=== PATIENT | male | born 1950 | race Caucasian/White ===

== ENCOUNTER 2018-03-10 12:16 | Emergency (ER) | payer OTHER ==
[2018-03-10 12:36] VITALS: BP 129/78
[2018-03-10] MEDS ORDERED: BUFFERED LIDOCAINE 10 ML SYRINGE SUBQ STA (13:15)
--- NOTE | 2018-03-10 13:41 | ED Physician Documentation ---
PD HPI UPPER EXT INJURY - Stated complaint Stated Complaint: L MID FINGER LAC - Chief complaint Chief Complaint: Laceration - History obtained from History obtained from: Patient - History of Present Illness Location: Left, Finger (middle) Type of injury: Laceration Where injury occurred: Home Timing - onset: Today Timing - duration: Minutes Timing - details: Abrupt onset, Still present Improved by: Rest Worsened by: Moving, Palpating Associated symptoms: No: Weakness, Numbness, Tingling, Swelling, Discolored Contributing factors: No: Anticoagulated Similar symptoms before: Diagnosis (laceration) Recently seen: Not recently seen - Additonal information Additional information: 67-year-old male with calcium pyrophosphate disease has lacerated his left middle finger on the ball of a trailer. He has retained function of all flexor tendons and distal sensation and has been able to control the bleeding with direct pressure. Review of Systems Constitutional: denies: Fever Respiratory: denies: Cough GI: denies: Vomiting Skin: reports: Laceration (s) Musculoskeletal: reports: Extremity pain PD PAST MEDICAL HISTORY - Past Medical History Past Medical History: Yes Cardiovascular: Hypertension Respiratory: None Endocrine/Autoimmune: HyPOthyroidism GI: GERD : Benign prostate hypertrophy HEENT: Other Psych: None Musculoskeletal: Other Derm: Other - Past Surgical History Past Surgical History: No General: EGD Ortho: Hip replacement, Knee replacement, Carpal Tunnel surgery HEENT: Tonsil/Adenoidectomy - Present Medications Home Medications: Ambulatory Orders Medication Instructions Recorded Confirmed Levothyroxine [Synthroid] 175 mcg PO DAILY 11/03/14 03/10/18 Losartan [Cozaar] 100 mg PO DAILY 11/03/14 03/10/18 amLODIPine [Norvasc] 5 mg PO DAILY 11/03/14 03/10/18 Acetaminophen [Tylenol] 650 mg PO Q6H PRN 09/26/15 03/10/18 Docusate Sodium 200 mg PO DAILY 09/26/15 03/10/18 Duloxetine HCl [Cymbalta] 60 mg PO DAILY 09/26/15 03/10/18 Loratadine 10 mg PO DAILY 09/26/15 03/10/18 Magnesium Oxide/Mag Aa Chelate 900 mg PO ONCE 09/26/15 03/10/18 [Magnesium 300 mg Capsule] Meloxicam [Mobic] 3.75 mg PO DAILY 09/26/15 03/10/18 Sildenafil Citrate [Viagra] 50 mg PO ONCE 09/26/15 03/10/18 HYDROcod/ACETAM 5/325 [Vicodin 2 tab PO ONCE 10/04/15 03/10/18 5/325] Cholecalciferol (Vitamin D3) 4,000 mg PO DAILY 03/10/18 03/10/18 [Vitamin D3] Hydroxychloroquine [Plaquenil] 400 tab PO DAILY 03/10/18 03/10/18 - Allergies Allergies/Adverse Reactions: Allergies Allergy/AdvReac Type Severity Reaction Status Date / Time prochlorperazine edisylate * AdvReac Severe dystonic Verified 03/10/18 12:36 [From Compazine] reaction prochlorperazine maleate * AdvReac Severe dystonic Verified 09/26/15 11:51 [From Compazine] reaction - Social History Does the pt smoke?: No Smoking Status: Never smoker Does the pt drink ETOH?: No Does the pt have substance abuse?: No - Immunizations Immunizations are current?: Yes - POLST Patient has POLST: No PD ED PE NORMAL - Vitals Vital signs reviewed: Yes (normal) - General General: Alert and oriented X 3, No acute distress, Well developed/nourished - HEENT HEENT: Atraumatic, PERRL - Respiratory Respiratory: No respiratory distress - Derm Derm: Normal color, Warm and dry, No rash - Extremities Extremities: Other (There are multiple joint deformities consistent with advanced arthritis. The middle finger over the PIP joint has a laceration that is stellate and involves multiple flaps with some maceration of tissue and no tissue loss. There is not involvement of deeper structures and flexion extension and sensation in blood are all intact.) - Neuro Neuro: No motor deficit, No sensory deficit Eye Opening: Spontaneous Motor: Obeys Commands Verbal: Oriented GCS Score: 15 - Psych Psych: Normal mood, Normal affect Results - Vitals Vitals: Vital Signs - 24 hr 03/10/18 12:34 Temperature 36.3 C L Heart Rate 68 Respiratory 18 Rate Blood Pressure 129/78 O2 Saturation 98 Oxygen O2 Source Room air Procedures - Laceration (location) left middle Length in cm: 2 Wound type: Stellate, Irregular, Clean Neurovascular status: Sensory intact, Motor intact, Vascular intact Anesthesia: Lidocaine 1%, With bicarb Wound Preparation: Hibiclens, Irrigated copiously NS, Wound explored, To the base Skin layer closure: Nylon, Interrupted, Size #-0 - enter number (4-0) Other: Patient tolerated well, No complications, Neurovascular intact, Dressing applied, Tetanus UTD PD MEDICAL DECISION MAKING - ED course Complexity details: reviewed old records, reviewed results, re-evaluated patient , considered differential, d/w patient, d/w family ED course: 67-year-old male with a left middle finger laceration is sutured he is up-to- date on his tetanus. Departure - Departure Disposition: 01 Home, Self Care Clinical Impression: Finger laceration Qualifiers: Encounter type: initial encounter Finger: middle finger Damage to nail status: without damage Foreign body presence: without foreign body Laterality: left Qualified Code(s): S61.213A - Laceration without foreign body of left middle finger without damage to nail, initial encounter Instructions: ED Laceration Hand Follow-Up: Vadim Rodriguez MD [Primary Care Provider] - Comments: Sutures will need to be removed in 7-10 days
== END 2018-03-10 13:55 | disposition home or self-care (01) ==
LOC: ED 12:16
DX: S61.213A Laceration without foreign body of left middle finger without damage to nail, initial encounter (principal); W45.8XXA Other foreign body or object entering through skin, initial encounter; Y92.009 Unspecified place in unspecified non-institutional (private) residence as the place of occurrence of the external cause; I10 Essential (primary) hypertension; E03.9 Hypothyroidism, unspecified; Z96.649 Presence of unspecified artificial hip joint; Z96.659 Presence of unspecified artificial knee joint
CPT/HCPCS: 12001; 99282; 99283

== ENCOUNTER 2018-06-03 16:18 | Emergency (ER) | payer MEDICARE, OTHER ==
[2018-06-03] MEDS ORDERED: BUFFERED LIDOCAINE 10 ML SYRINGE SUBQ STA (16:56)
--- NOTE | 2018-06-03 16:57 | ED Physician Documentation ---
PD HPI UPPER EXT INJURY - Stated complaint Stated Complaint: RT THUMB LAC - Chief complaint Chief Complaint: Laceration - History obtained from History obtained from: Patient - History of Present Illness Location: Right (Right-handed gentleman who is current on tetanus cut his right thumb on a table saw while working at home just prior to arrival.) Review of Systems Constitutional: reports: Reviewed and negative Cardiac: reports: Reviewed and negative Respiratory: reports: Reviewed and negative PD PAST MEDICAL HISTORY - Past Medical History Cardiovascular: Hypertension Respiratory: None Endocrine/Autoimmune: HyPOthyroidism GI: GERD : Benign prostate hypertrophy HEENT: Other Psych: None Musculoskeletal: Other Derm: Other - Past Surgical History Past Surgical History: No General: EGD Ortho: Hip replacement, Knee replacement, Carpal Tunnel surgery HEENT: Tonsil/Adenoidectomy - Present Medications Home Medications: Ambulatory Orders Medication Instructions Recorded Confirmed Levothyroxine [Synthroid] 175 mcg PO DAILY 11/03/14 03/10/18 Losartan [Cozaar] 100 mg PO DAILY 11/03/14 03/10/18 amLODIPine [Norvasc] 5 mg PO DAILY 11/03/14 03/10/18 Acetaminophen [Tylenol] 650 mg PO Q6H PRN 09/26/15 03/10/18 Docusate Sodium 200 mg PO DAILY 09/26/15 03/10/18 Duloxetine HCl [Cymbalta] 60 mg PO DAILY 09/26/15 03/10/18 Loratadine 10 mg PO DAILY 09/26/15 03/10/18 Magnesium Oxide/Mag Aa Chelate 900 mg PO ONCE 09/26/15 03/10/18 [Magnesium 300 mg Capsule] Meloxicam [Mobic] 3.75 mg PO DAILY 09/26/15 03/10/18 Sildenafil Citrate [Viagra] 50 mg PO ONCE 09/26/15 03/10/18 HYDROcod/ACETAM 5/325 [Vicodin 2 tab PO ONCE 10/04/15 03/10/18 5/325] Cholecalciferol (Vitamin D3) 4,000 mg PO DAILY 03/10/18 03/10/18 [Vitamin D3] Hydroxychloroquine [Plaquenil] 400 tab PO DAILY 03/10/18 03/10/18 - Allergies Allergies/Adverse Reactions: Allergies Allergy/AdvReac Type Severity Reaction Status Date / Time lisinopril Allergy Intermediate Respiratory Verified 06/03/18 16:28 prochlorperazine edisylate * AdvReac Severe dystonic Verified 03/10/18 12:36 [From Compazine] reaction prochlorperazine maleate * AdvReac Severe dystonic Verified 09/26/15 11:51 [From Compazine] reaction - Social History Does the pt smoke?: No Smoking Status: Never smoker Does the pt drink ETOH?: No Does the pt have substance abuse?: No - Immunizations Immunizations are current?: Yes - POLST Patient has POLST: No PD ED PE NORMAL - Vitals Vital signs reviewed: Yes - General General: Alert and oriented X 3, No acute distress - Extremities Extremities: Other (There is a 2 cm oblique laceration on the radial side of the pulp of the right thumb with normal distal neurovascular status.) - Neuro Neuro: Alert and oriented X 3, Normal speech - Psych Psych: Normal mood, Normal affect Results - Vitals Vitals: Vital Signs - 24 hr 06/03/18 16:22 Temperature 36.2 C L Heart Rate 70 Respiratory 16 Rate Blood Pressure 155/85 H O2 Saturation 99 Oxygen O2 Source Room air Procedures - Laceration (location) R thumb Length in cm: 2 Wound type: Linear Neurovascular status: Sensory intact, Motor intact, Vascular intact Anesthesia: Lidocaine 1%, With bicarb (dig block) Wound Preparation: Irrigated copiously NS Skin layer closure: Nylon, Interrupted, Size #-0 - enter number (4-0), Sutures - enter # (7) Other: Tetanus UTD Complexity: Simple PD MEDICAL DECISION MAKING - Sepsis Event Vital Signs: Vital Signs - 24 hr 06/03/18 16:22 Temperature 36.2 C L Heart Rate 70 Respiratory 16 Rate Blood Pressure 155/85 H O2 Saturation 99 Oxygen O2 Source Room air Departure - Departure Disposition: 01 Home, Self Care Clinical Impression: Laceration Condition: Good Record reviewed to determine appropriate education?: Yes Instructions: ED Laceration Hand Comments: Come back for any signs of infection which would include: Redness, swelling, drainage, increased pain, or fevers. Follow-up with your physician in 14 days for suture removal. Your blood pressure was elevated today on check into the emergency department. This does not mean that you have hypertension, it is a common phenomenon to come to the emergency department and have elevated blood pressure. I recommend that you see your primary care physician within the week to have it rechecked when you are feeling better.
[2018-06-03 17:34] VITALS: BP 151/69
== END 2018-06-03 17:33 | disposition home or self-care (01) ==
LOC: ED 16:18
DX: S61.011A Laceration without foreign body of right thumb without damage to nail, initial encounter (principal); I10 Essential (primary) hypertension; W31.2XXA Contact with powered woodworking and forming machines, initial encounter; Y92.009 Unspecified place in unspecified non-institutional (private) residence as the place of occurrence of the external cause
CPT/HCPCS: 12001; 99283

== ENCOUNTER 2021-01-10 11:32 | Emergency (ER) | payer MEDICARE, OTHER ==
[2021-01-10 11:46] VITALS: BP 156/87
--- NOTE | 2021-01-10 12:30 | XRAY Report ---
PROCEDURE: Shoulder 3 View RT INDICATIONS: trauma TECHNIQUE: 3 views of the shoulder were acquired. COMPARISON: None. FINDINGS: Bones: No fractures or dislocations. No suspicious bony lesions. Visualized ribs appear intact. Th e acromioclavicular joint space measures 18 mm. Soft tissues: No suspicious soft tissue calcifications. IMPRESSION: 1. 18 mm right acromioclavicular joint space. Given history of trauma, this could represent AC sprain . However, recommend clinical correlation to clinical history of distal clavicular resection. If prio r clavicular surgery had occurred, widened acromioclavicular joint space is simply reflective of prio r surgery. 2. No visualized acute fracture or dislocation. However, occult injury cannot be excluded. Recommend short interval imaging follow-up in 7-10 days as clinically indicated for additional evaluation. Reviewed by: aSndra Alvarez MD on 01/10/2021 12:29 PM PST Approved by: Sandra Alvarez MD on 01/10/2021 12:29 PM PST Station ID: [id number]
--- NOTE | 2021-01-10 13:09 | ED Physician Documentation ---
History of Present Illness - Stated complaint Stated Complaint: R SHOULDER PX - Chief complaint Chief Complaint: Trauma Ext - Additonal information Additional information: 70-year-old male presents the emergency department for acute right shoulder pain. He was walking this morning stepped in a large hole and attempted to roll forward. He felt a crunch and pop in the back of his shoulder and had severe pain. He unfortunately underwent rotator cuff repair in August 2020 through [place]. He has been progressing nicely with physical therapy. 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 Palacios in [facility] Review of Systems Constitutional: denies: Fever, Chills Eyes: reports: Reviewed and negative Ears: reports: Reviewed and negative Nose: reports: Reviewed and negative Throat: reports: Reviewed and negative Cardiac: reports: Reviewed and negative Respiratory: reports: Reviewed and negative GI: reports: Reviewed and negative : reports: Reviewed and negative Musculoskeletal: reports: Joint pain (right shoulder) PD PAST MEDICAL HISTORY - Past Medical History Past Medical History: Yes Cardiovascular: Hypertension Respiratory: None Endocrine/Autoimmune: HyPOthyroidism GI: GERD : Benign prostate hypertrophy HEENT: Other Psych: None Musculoskeletal: Other Derm: Other - Past Surgical History Past Surgical History: No General: EGD Ortho: Hip replacement, Knee replacement, Carpal Tunnel surgery HEENT: Tonsil/Adenoidectomy - Present Medications Home Medications: Ambulatory Orders Medication Instructions Recorded Confirmed Levothyroxine [Synthroid] 175 mcg PO DAILY 11/03/14 03/10/18 Losartan [Cozaar] 100 mg PO DAILY 11/03/14 03/10/18 amLODIPine [Norvasc] 5 mg PO DAILY 11/03/14 03/10/18 Acetaminophen [Tylenol] 650 mg PO Q6H PRN 09/26/15 03/10/18 Docusate Sodium 200 mg PO DAILY 09/26/15 03/10/18 Duloxetine HCl [Cymbalta] 60 mg PO DAILY 09/26/15 03/10/18 Loratadine 10 mg PO DAILY 09/26/15 03/10/18 Magnesium Oxide/Magnesium 900 mg PO ONCE 09/26/15 03/10/18 [Magnesium 300 mg Capsule] Meloxicam [Mobic] 3.75 mg PO DAILY 09/26/15 03/10/18 Sildenafil Citrate [Viagra] 50 mg PO ONCE 09/26/15 03/10/18 HYDROcod/ACETAM 5/325 [Vicodin 2 tab PO ONCE 10/04/15 03/10/18 5/325] Cholecalciferol (Vitamin D3) 4,000 mg PO DAILY 03/10/18 03/10/18 [Vitamin D3] Hydroxychloroquine [Plaquenil] 400 tab PO DAILY 03/10/18 03/10/18 - Allergies Allergies/Adverse Reactions: Allergies Allergy/AdvReac Type Severity Reaction Status Date / Time lisinopril Allergy Intermediate Respiratory Verified 01/10/21 11:46 prochlorperazine edisylate * AdvReac Severe dystonic Verified 01/10/21 11:46 [From Compazine] reaction prochlorperazine maleate * AdvReac Severe dystonic Verified 01/10/21 11:46 [From Compazine] reaction - Social History Does the pt smoke?: No Smoking Status: Never smoker Does the pt drink ETOH?: No Does the pt have substance abuse?: No - Immunizations Immunizations are current?: Yes - POLST Patient has POLST: No PD ED PE EXPANDED - General General: Alert, No acute distress, Well developed/nourished - Extremities Extremities: Right shoulder (Tenderness in the posterior shoulder. + empty can exam. Reduced abduction/adduction. No swelling, erythema) Results - Vitals Vitals: Vital Signs - 24 hr 01/10/21 11:43 Temperature 36.4 C L Heart Rate 75 Respiratory 16 Rate Blood Pressure 156/87 H O2 Saturation 100 Oxygen O2 Source Room air - Rads (name of study) right shoulder Radiology: Final report received (18 mm right AC joint space.No visualized acute fracture dislocation) PD MEDICAL DECISION MAKING - ED course Complexity details: reviewed results, re-evaluated patient, d/w patient ED course: 70-year-old male presents to the emergency department for evaluation of acute right posterior shoulder pain after a ground-level fall at home today. He unfortunately underwent rotator cuff repair in [place] in August 2020. He had been progressing nicely and reported nearly full range of motion this morning until the fall. He does have a history of a pseudogout disorder and has had multiple orthopedic surgeries including treatment of his distal clavicles that included removal of some bone. X-ray does not show any acute fracture or dislocation. There is a widened AC joint space. Given the history of clavicle surgery/repair this is more consistent with that as opposed to an actual AC separation. Unfortunately this gentleman does have a positive empty can today. It is likely that he has reinjured his rotator cuff. I have advised close follow-up with his orthopedic surgeon in [place]. Emergent return precautions and routine care including conservative measures of the next 14 days were discussed. Departure - Departure Disposition: 01 Home, Self Care Clinical Impression: Rotator cuff tear arthropathy of right shoulder Right shoulder pain Qualifiers: Chronicity: acute Qualified Code(s): M25.511 - Pain in right shoulder Condition: Stable Record reviewed to determine appropriate education?: Yes Instructions: ED Torn Rotator Cuff Follow-Up: Vinod Saavedra DO [Physician No Access] - Comments: Ryan unfortunately it appears as though you have reinjured the rotator cuff in your right shoulder. The x-ray today does not show any acute broken bones or dislocations. There is a widening of your right AC joint but this is consistent with your history of clavicle surgery. Over the next 10 to 14 days I do recommend icing the shoulder and limited overhead reaching and extension of the arm. It is important that you follow-up with your orthopedic surgeon and physical therapy. In the future an MRI may be indicated versus additional physical therapy. I wish you luck in your journey.
== END 2021-01-10 13:25 | disposition home or self-care (01) ==
LOC: ED 11:32
DX: S46.011A Strain of muscle(s) and tendon(s) of the rotator cuff of right shoulder, initial encounter (principal); W01.0XXA Fall on same level from slipping, tripping and stumbling without subsequent striking against object, initial encounter; Y93.01 Activity, walking, marching and hiking; Y92.009 Unspecified place in unspecified non-institutional (private) residence as the place of occurrence of the external cause; I10 Essential (primary) hypertension
CPT/HCPCS: 99283

== ENCOUNTER 2021-05-28 06:17 | Day surgery (SDC) | payer MEDICARE, OTHER ==
[~2021-05-28 06:17] MED LIST: ceFAZolin 2 GM/50 ML 2 GM/50 ML BAG IV ONE
[2021-05-28] MEDS ORDERED: LIDOCAINE 1% 50 ML MDV ONE (06:30)
[2021-05-28] MEDS ORDERED: LACTATED RINGERS 1,000 ML IV ONE ×2 (07:05→09:50)
--- NOTE | 2021-05-28 07:14 | ANESTHESIA ---
Pre-Anesthesia VS, & Labs - Diagnosis bilateral inguinal hernias - Procedure bilateral inguinal hernia repairs Height: 5 ft 10 in Weight (kg): 104.1 kg Body Mass Index: 32.9 BMI Classification: Obese - NPO >8 hours Home Medications and Allergies Home Medications: Ambulatory Orders Calcium Carbonate [Tums (Calcium Carbonate 500mg)] 500 mg PO Q4-6H 05/21/21 Celecoxib [Celebrex] 200 mg PO BID PRN 05/21/21 Chlorthalidone 12.5 mg PO DAILY 05/21/21 Fexofenadine HCl 180 mg PO DAILY 05/21/21 Lactobacillus Combination No.4 [Probiotic] 1 each PO DAILY 05/21/21 Omeprazole [PriLOSEC] 20 mg PO DAILY 05/21/21 predniSONE [Deltasone] 5 mg PO DAILY 05/21/21 Losartan [Cozaar] 100 mg PO QPM 11/03/14 Acetaminophen [Tylenol] 1,300 mg PO Q8HR PRN 09/26/15 Docusate Sodium 300 mg PO BID 09/26/15 Duloxetine HCl [Cymbalta] 60 mg PO QPM 09/26/15 Loratadine 10 mg PO DAILY 09/26/15 Magnesium Oxide/Magnesium [Magnesium 300 mg Capsule] 500 - 1,000 mg PO BID 09/26/15 Cholecalciferol (Vitamin D3) [Vitamin D3] 2,000 mg PO BID 03/10/18 Hydroxychloroquine [Plaquenil] 400 tab PO DAILY 03/10/18 Calcium Carbonate [Tums (Calcium Carbonate 500mg)] 500 mg PO Q4-6H 05/21/21 Celecoxib [Celebrex] 200 mg PO BID PRN 05/21/21 Chlorthalidone 12.5 mg PO DAILY 05/21/21 Fexofenadine HCl 180 mg PO DAILY 05/21/21 Lactobacillus Combination No.4 [Probiotic] 1 each PO DAILY 05/21/21 Omeprazole [PriLOSEC] 20 mg PO DAILY 05/21/21 predniSONE [Deltasone] 5 mg PO DAILY 05/21/21 Allergies/Adverse Reactions: Allergies Allergy/AdvReac Type Severity Reaction Status Date / Time prochlorperazine edisylate * Allergy Severe dystonic Verified 05/21/21 14:52 [From Compazine] reaction prochlorperazine maleate * Allergy Severe dystonic Verified 05/21/21 14:52 [From Compazine] reaction lisinopril AdvReac Intermediate cough Verified 05/21/21 14:52 Anes History & Medical History - Anesthetic History Anesthesia Complications: reports: No previous complications Family history of Anesthesia Complications: Denies Family history of Malignant Hyperthermia: Denies - Medical History Cardiovascular: reports: Hypertension Pulmonary: reports: None Gastrointestinal: reports: None Urinary: reports: Benign prostate hypertrophy, Renal insuffiency (stage 3 CKD), Other Musculoskeletal: reports: Other Endocrine/Autoimmune: reports: HyPOthyroidism Skin: reports: Other Smoking Status: Never smoker - Surgical History General: reports: Colonoscopy, EGD, Other Eyes Ears Nose Throat (EENT): reports: Tonsil/Adenoidectomy, Other Orthopedic: reports: Hip replacement, Knee replacement, Carpal Tunnel surgery, Other Exam General: Alert, Oriented x3, Cooperative Dental: WNL Mouth Openin Fingerbreadth Neck Mobility: Normal Mallampati classification: I Thyromental Distance: 4-6 cm Respiratory: Lungs clear Cardiovascular: Regular rate Plan Anesthesia Type: General Consent for Procedure(s) Verified and Reviewed: Yes Code Status: Attempt Resuscitation ASA classification: 2-Mild systemic disease Is this case an emergency?: No
[2021-05-28] MEDS ORDERED: BUPIVACAINE 0.5% PF 30 ML VIAL ONE (07:15)
[2021-05-28] MEDS ORDERED: MIDAZOLAM 2 MG/2 ML VIAL ONE (07:16)
[2021-05-28] MEDS ORDERED: ROCURONIUM 50 MG/5 ML VIAL ONE (07:16)
[2021-05-28] MEDS ORDERED: LIDOCAINE-MPF 2% 5 ML VIAL ONE (07:16)
[2021-05-28] MEDS ORDERED: PROPOFOL 200 MG/20 ML VIAL IVP ONE (07:16)
[2021-05-28] MEDS ORDERED: fentaNYL 100 MCG/2 ML VIAL ONE (07:16)
[2021-05-28] MEDS ORDERED: NALOXONE 0.4 MG/ML VIAL IVP PRN (07:30)
[2021-05-28] MEDS ORDERED: HYDROmorphone 0.5 MG/0.5 ML SYRINGE IVP PRN (07:30)
[2021-05-28] MEDS ORDERED: fentaNYL 100 MCG/2 ML VIAL IVP PRN (07:30)
[2021-05-28] MEDS ORDERED: ePHEDrine 50 MG/ML VIAL IVP PRN (07:30)
[2021-05-28] MEDS ORDERED: MORPHINE 2 MG/ML CARPUJECT IVP PRN (07:30)
[2021-05-28] MEDS ORDERED: ONDANSETRON 4 MG/2 ML VIAL IVP PRN (07:30)
[2021-05-28] MEDS ORDERED: ATROPINE ABBOJECT 1 MG/10 ML SYRINGE IVP PRN (07:30)
[2021-05-28] MEDS ORDERED: ONDANSETRON 4 MG/2 ML VIAL ONE (07:46)
[2021-05-28] MEDS ORDERED: KETOROLAC 30 MG/ML VIAL ONE (07:46)
[2021-05-28] MEDS ORDERED: DEXAMETHASONE 4 MG/ML VIAL ONE (07:46)
[2021-05-28] MEDS ORDERED: LACTATED RINGERS 1,000 ML IV SCH (08:00)
[2021-05-28] MEDS ORDERED: BUPIVACAINE 0.5% PF 30 ML VIAL INFIL ONE (08:07)
[2021-05-28] MEDS ORDERED: SEVOFLURANE 250 ML LIQUID INH ONE (09:23)
--- NOTE | 2021-05-28 09:48 | OPERATIVE REPORT ---
Operative Report - General Procedure Date: 05/28/21 Planned Procedure: Bilateral inguinal herniorrhaphy Pre-Op Diagnosis: Bilateral inguinal hernia, symptomatic Procedure Performed: Bilateral direct inguinal herniorrhaphy with mesh Excision left cord lipoma Post Op Diagnosis: Bilateral direct inguinal hernias, left cord lipoma - Procedure Note Primary Surgeon: Spike Noe MD Anesthesia Provider: Virginia Obrien CRNA Anesthesia Technique: General ET tube, Local (30 mL of half percent Marcaine (15 mL on each side)) IV Fluids (mL): 600 Estimated Blood Loss (mL): 5 Drain/Tube Type: Other (None.) Indications: As above. Findings: As above. Complications: None. - Other Other Information/Narrative: After verbal and written informed consent was obtained detailing the operation, the alternatives the operation including no operation, risks of infection, bleeding requiring transfusion with its risks, nerve injury, and and after I met with the patient confirming the surgery and the site of surgery, the patient was brought to the operative suite and placed supine on the operating table. Great care was taken to avoid pressure points to prevent pressure necrosis or nerve injury. Monitoring devices were applied along with TEDs and pneumatic compression stockings (to prevent DVT). The patient received preoperative antibiotics for surgical prophylaxis. Virginia Obrien sedated and anesthetized the patient for the entire procedure. The patient was prepped and draped in the usual sterile manner. Please note that due to the bilateral nature of this procedure the operative sites were not marked. A "time in" then confirmed that the patient was identified with 3 identifiers (name, birthdate, and medical record number), the history and physical was updated and in the chart, the signed consent confirming the procedure was in the chart, the patient was in the correct position, the aforementioned prophylactic measures were in place or given, we had the correct personnel and equipment to complete the procedure and that anesthesia and the surgical team were given an opportunity to express any concerns. With the agreement of everyone in the room we proceeded with the operation. The right side was addressed first. A standard right inguinal incision was made using a 15 blade scalpel and dissection down to the external oblique was completed using Bovie electrocautery. Small crossing veins were cauterized using Bovie electrocautery. The external oblique was reached and the external ring was defined. A small incision was made in the external oblique and this incision was taken down to the external ring using Metzenbaum scissors. Great care was taken to preserve the ilioinguinal nerve. A Andie drain was placed around the cord contents at the level of the pubic tubercle and used for retraction. The cord contents were examined extensively and no sac could be appreciated or found. The floor the inguinal canal was significantly lax. As such a direct inguinal herniorrhaphy was completed using 2 0 PDS sutures that were used to secure the mesh at the pubic tubercle and then run superiorly to approximate the mesh to the conjoined tendon and inferiorly to approximate the mesh to the shelving edge of Poupart's ligament. This was done without any undue tension. The cord contents were brought through the slot and the mesh and the mesh was secured behind the cord contents using these sutures. In this manner the floor the inguinal canal was repaired. The external oblique was then closed over this using a 3-0 Vicryl in a running fashion. Meticulous hemostasis was noted. 15 mL of half percent Marcaine was injected both deep and superficially for long-term anesthetic control. The skin was approximated using a 4-0 Monocryl in a running subcuticular fashion. Attention was then directed to the left side. This side was repaired in exactly the same manner as the right hand side with the notable change that a large cord lipoma was found dissected back to the internal ring and suture ligated with a 3-0 Vicryl and excised. I opted not to send the lipoma to pathology. Both skin incisions were cleaned of the prep and Dermabond was applied. At this point a timeout was performed that confirmed that all counts were correct x2, the procedure that was performed, the blood loss, the IV fluids administered, the patient's condition, and any concerns of the operating team had. We made sure that the testicles were well seated within the scrotum. Having tolerated the procedure well, the patient was taken recovery room in good and stable condition. The plan is for outpatient discharge when the patient is adequately recovered. This document was created in part using voice recognition technology. Because of the inherent limitations of the system, occasional same sounding word substitutions and grammatical errors do occur and persist despite proofreading. Please read this document for content. ICD-10 K40.21 and D17.6
[2021-05-28] MEDS ORDERED: oxyCODONE 5 MG TABLET PO PRN (10:40)
[2021-05-28] MEDS ORDERED: oxyCODONE 5 MG TABLET ONE (10:40)
[2021-05-28 11:01] VITALS: BP 142/79
--- NOTE | 2021-05-28 11:10 | ANESTHESIA POST OP EVALUATION ---
Anesthesia Post Eval - Post Anesthesia Eval Vitals: Last Vital Signs Temp 37.0 C 05/28/21 11:00 Pulse 58 L 05/28/21 11:00 Resp 14 05/28/21 11:00 BP 142/79 H 05/28/21 11:00 Pulse Ox 99 05/28/21 11:00 CV Function Including HR & BP: Stable Pain Control: Satisfactory Nausea & Vomiting: Negative Mental Status: Baseline Respiratory Status: Airway Patent Hydration Status: Satisfactory Anesthesia Complications: None
== END 2021-05-28 06:18 | disposition home or self-care (01) ==
LOC: SDS 06:17
PROVIDERS: ATTEND Surgery
PROC: 0VBG0ZZ Excision of Left Spermatic Cord, Open Approach (ICD-10-PCS; 2021-05-28)
PROC: 0YUA0JZ Supplement Bilateral Inguinal Region with Synthetic Substitute, Open Approach (ICD-10-PCS; principal; 2021-05-28 07:30)
DX: K40.20 Bilateral inguinal hernia, without obstruction or gangrene, not specified as recurrent (principal); D17.6 Benign lipomatous neoplasm of spermatic cord; E66.9 Obesity, unspecified; N40.0 Benign prostatic hyperplasia without lower urinary tract symptoms; Z68.32 Body mass index [BMI] 32.0-32.9, adult
CPT/HCPCS: 49505; 55520; A9270; C1781; J0690; J3490; J7120

== ENCOUNTER 2021-07-09 14:00 | Emergency (ER) | payer MEDICARE, OTHER ==
--- NOTE | 2021-07-09 16:35 | ED Physician Documentation ---
PD HPI SKIN - Stated complaint Stated Complaint: male gu - Chief complaint Chief Complaint: Wound - History obtained from History obtained from: Patient - History of Present Illness Timing - onset: Yesterday Timing - details: Abrupt onset, Still present (slightly red and tender area yesterday medial upper thigh/inguinal area that is markedly more red/tender today.) Location: Other (right inguinal/thigh area) Quality / character: Painful, Discolored (red), Swelling. No: Vesicular, Draining Associated symptoms: No: Fever, Myalgias, N/V/D Similar symptoms before: Has not had sx before Review of Systems Constitutional: denies: Fever, Chills Skin: reports: Rash Neurologic: denies: Focal weakness, Numbness PD PAST MEDICAL HISTORY - Past Medical History Cardiovascular: Hypertension Respiratory: None Endocrine/Autoimmune: HyPOthyroidism GI: None : Benign prostate hypertrophy, Renal insuffiency (stage 3 CKD), Other HEENT: Chronic vision loss Psych: Post traumatic stress disorder Musculoskeletal: Other Derm: Other - Past Surgical History Past Surgical History: No General: Colonoscopy, EGD, Other Ortho: Hip replacement, Knee replacement, Carpal Tunnel surgery, Other HEENT: Tonsil/Adenoidectomy, Other - Present Medications Home Medications: Ambulatory Orders Medication Instructions Recorded Confirmed Losartan [Cozaar] 100 mg PO QPM 11/03/14 05/28/21 Acetaminophen [Tylenol] 1,300 mg PO Q8HR PRN 09/26/15 05/28/21 Docusate Sodium 300 mg PO BID 09/26/15 05/28/21 Duloxetine HCl [Cymbalta] 60 mg PO QPM 09/26/15 05/28/21 Loratadine 10 mg PO DAILY 09/26/15 05/28/21 Magnesium Oxide/Magnesium 500 - 1,000 mg PO BID 09/26/15 05/28/21 [Magnesium 300 mg Capsule] Cholecalciferol (Vitamin D3) 2,000 mg PO BID 03/10/18 05/28/21 [Vitamin D3] Hydroxychloroquine [Plaquenil] 400 tab PO DAILY 03/10/18 05/28/21 Calcium Carbonate [Tums (Calcium 500 mg PO Q4-6H 05/21/21 05/28/21 Carbonate 500mg)] Celecoxib [Celebrex] 200 mg PO BID PRN 05/21/21 05/28/21 Chlorthalidone 12.5 mg PO DAILY 05/21/21 05/28/21 Fexofenadine HCl 180 mg PO DAILY 05/21/21 05/28/21 Lactobacillus Combination No.4 1 each PO DAILY 05/21/21 05/28/21 [Probiotic] Omeprazole [PriLOSEC] 20 mg PO DAILY 05/21/21 05/28/21 predniSONE [Deltasone] 5 mg PO DAILY 05/21/21 05/28/21 Docusate Sodium 250Mg Capsule 250 mg PO DAILY #10 cap 05/28/21 [Colace 250Mg Capsule] HYDROcod/ACETAM 5/325 [[place] 5/325] 1 each PO Q4H #20 tablet 05/28/21 Doxycycline Monohydrate 150 mg PO BID #14 07/09/21 Terbinafine HCl [Lamisil At] 1 applic TP TID 5 Days #15 gm 07/09/21 - Allergies Allergies/Adverse Reactions: Allergies Allergy/AdvReac Type Severity Reaction Status Date / Time prochlorperazine edisylate * Allergy Severe dystonic Verified 07/09/21 14:06 [From Compazine] reaction prochlorperazine maleate * Allergy Severe dystonic Verified 07/09/21 14:06 [From Compazine] reaction lisinopril AdvReac Intermediate cough Verified 07/09/21 14:06 - Social History Does the pt smoke?: No Smoking Status: Never smoker Does the pt drink ETOH?: No Does the pt have substance abuse?: No - Immunizations Immunizations are current?: Yes - POLST Patient has POLST: No PD ED PE NORMAL - Vitals Vital signs reviewed: Yes - General General: Alert and oriented X 3, No acute distress, Well developed/nourished - Male Male : Other (no testicular tenderness nor swelling. ) - Derm Derm: Normal color, Warm and dry, Other (right inguinal area and proximal medial thigh with rounded patch of very redness with tender. No fluctuance. No weeping. There is some red streaky extensions from center. lateral scrotal wall and inguinal crease with speckled redness. ) Results - Vitals Vitals: Vital Signs - 24 hr 07/09/21 07/09/21 14:06 17:02 Temperature 36.6 C 36 C L Heart Rate 63 65 Respiratory 16 16 Rate Blood Pressure 150/65 H 171/94 H O2 Saturation 99 100 Oxygen O2 Source Room air PD MEDICAL DECISION MAKING - ED course Complexity details: considered differential (elements in inguinal area and side of scrotum appear tinea like but then the main area is markedly red with some streaking out from center c/w bacterial as well. No fluctuance. ), d/w patient Departure - Departure Disposition: 01 Home, Self Care Clinical Impression: Groin rash Cellulitis Qualifiers: Site of cellulitis: extremity Site of cellulitis of extremity: lower extremity Laterality: right Qualified Code(s): L03.115 - Cellulitis of right lower limb Condition: Stable Record reviewed to determine appropriate education?: Yes Prescriptions: Doxycycline Monohydrate 150 mg PO BID #14 Terbinafine HCl [Lamisil At] 1 applic TP TID 5 Days #15 gm Comments: An element of the rash looks like some tinea cruris along the side of the scrotum and part of the skin. I do agree with you it does look secondarily infected bacterial as well. Use terbinafine antifungal topically to the area 2- 3 times a day over the next 5 days or so. Doxycycline antibiotic orally twice daily for the next week. Recheck if not improved well over the next 2 to 3 days and return sooner if worsening or general symptoms such as fever nausea etc. Discharge Date/Time: 07/09/21 17:04
[2021-07-09] MEDS ORDERED: DOXYCYCLINE 100 MG TABLET PO STA (16:45)
[2021-07-09] MEDS ORDERED: FLUCONAZOLE 100 MG TABLET PO STA (16:45)
[2021-07-09 17:03] VITALS: BP 171/94
== END 2021-07-09 17:04 | disposition home or self-care (01) ==
LOC: ED 14:00
DX: L03.115 Cellulitis of right lower limb (principal); R21 Rash and other nonspecific skin eruption; I12.9 Hypertensive chronic kidney disease with stage 1 through stage 4 chronic kidney disease, or unspecified chronic kidney disease; N18.30 Chronic kidney disease, stage 3 unspecified
CPT/HCPCS: 99282; 99283; A9270

== ENCOUNTER 2021-10-29 12:33 | Outpatient (CLI) | payer MEDICARE, OTHER ==
--- NOTE | 2021-10-29 13:24 | Ultrasound Report ---
PROCEDURE: Abdomen Limited INDICATIONS: ABD/ PELVIC PAIN S/P INGUINAL HERNIA REPAIR BILATERAL TECHNIQUE: Real-time focused scanning was performed of the bilateral inguinal regions, with image documentation. COMPARISON: None. FINDINGS: Areas of shadowing are seen, compatible with prior mesh inguinal hernia repair. No fascial defect or protruding bowel/fat is appreciated to suggest a residual or recurrent hernia. IMPRESSION: 1. Postsurgical changes without evidence of recurrent or residual hernia. Reviewed by: Jaguar Temple MD on 10/29/2021 1:23 PM PST Approved by: Jaguar Temple MD on 10/29/2021 1:23 PM PST Station ID: [id number]
== END 2021-10-29 12:34 | disposition home or self-care (01) ==
LOC: DI 12:33
PROVIDERS: ATTEND Surgery
DX: R10.2 Pelvic and perineal pain (principal)

== ENCOUNTER 2021-11-16 08:43 | Day surgery (SDC) | payer MEDICARE, OTHER ==
[2021-11-16] MEDS ORDERED: LACTATED RINGERS 1,000 ML IV ONE ×2 (08:55→12:10)
[2021-11-16] MEDS ORDERED: CEFAZOLIN SODIUM IN 0.9 % NACL 2 GM/100 ML BAG IV ONE (08:56)
[2021-11-16] MEDS ORDERED: BUPIVACAINE 0.5% PF 10 ML VIAL ONE (09:46)
[2021-11-16] MEDS ORDERED: ATROPINE ABBOJECT 1 MG/10 ML SYRINGE IVP PRN (09:47)
[2021-11-16] MEDS ORDERED: fentaNYL 100 MCG/2 ML VIAL IVP PRN (09:47)
[2021-11-16] MEDS ORDERED: HYDROmorphone 0.5 MG/0.5 ML SYRINGE IVP PRN (09:47)
[2021-11-16] MEDS ORDERED: ePHEDrine 50 MG/ML VIAL IVP PRN (09:47)
[2021-11-16] MEDS ORDERED: METOCLOPRAMIDE 10 MG/2 ML VIAL IVP PRN (09:47)
[2021-11-16] MEDS ORDERED: MORPHINE 2 MG/ML CARPUJECT IVP PRN (09:47)
[2021-11-16] MEDS ORDERED: NALOXONE 0.4 MG/ML VIAL IVP PRN (09:47)
[2021-11-16] MEDS ORDERED: ONDANSETRON 4 MG/2 ML VIAL IVP PRN (09:47)
--- NOTE | 2021-11-16 09:47 | ANESTHESIA ---
Pre-Anesthesia VS, & Labs - Diagnosis persistent left groin pain s/p left inguinal herniorrhaphy - Procedure Inguinal nerurectomy, Vital Signs: Temp Pulse Resp BP Pulse Ox 36.1 C L 58 L 11 L 156/80 H 94 11/16/21 08:56 11/16/21 08:56 11/16/21 08:56 11/16/21 08:56 11/16/21 08:56 Height: 5 ft 10 in Weight (kg): 105.5 kg Body Mass Index: 33.3 BMI Classification: Obese - NPO >8 hours - Lab Results Lab results reviewed: Yes Home Medications and Allergies Losartan [Cozaar] 100 mg PO QPM 11/03/14 Acetaminophen [Tylenol] 1,300 mg PO Q8HR PRN 09/26/15 Docusate Sodium 300 mg PO BID 09/26/15 Loratadine 10 mg PO DAILY 09/26/15 Magnesium Oxide/Magnesium [Magnesium 300 mg Capsule] 500 - 1,000 mg PO BID 09/26/15 Cholecalciferol (Vitamin D3) [Vitamin D3] 2,000 mg PO BID 03/10/18 Hydroxychloroquine [Plaquenil] 400 tab PO DAILY 03/10/18 Calcium Carbonate [Tums (Calcium Carbonate 500mg)] 500 mg PO Q4-6H 05/21/21 Celecoxib [Celebrex] 200 mg PO BID PRN 05/21/21 Chlorthalidone 12.5 mg PO DAILY 05/21/21 Fexofenadine HCl 180 mg PO DAILY 05/21/21 Lactobacillus Combination No.4 [Probiotic] 1 each PO DAILY 05/21/21 Omeprazole [PriLOSEC] 20 mg PO DAILY 05/21/21 Allergies/Adverse Reactions: Allergies Allergy/AdvReac Type Severity Reaction Status Date / Time prochlorperazine edisylate * Allergy Severe dystonic Verified 11/16/21 09:09 [From Compazine] reaction prochlorperazine maleate * Allergy Severe dystonic Verified 11/16/21 09:09 [From Compazine] reaction lisinopril AdvReac Intermediate cough Verified 11/16/21 09:09 Anes History & Medical History - Anesthetic History Anesthesia Complications: reports: No previous complications Family history of Anesthesia Complications: Denies Family history of Malignant Hyperthermia: Denies - Medical History Cardiovascular: reports: Hypertension Pulmonary: reports: None Gastrointestinal: reports: None Urinary: reports: Benign prostate hypertrophy, Renal insuffiency, Other Musculoskeletal: reports: Other Endocrine/Autoimmune: reports: HyPOthyroidism Skin: reports: Other Smoking Status: Never smoker - Surgical History General: reports: Colonoscopy, EGD, Other Eyes Ears Nose Throat (EENT): reports: Tonsil/Adenoidectomy, Other Orthopedic: reports: Hip replacement, Knee replacement, Carpal Tunnel surgery, Other Dermatologic: reports: Skin cancer surgery Exam General: Alert, Oriented x3, Cooperative, No acute distress Dental: WNL Mouth Openin Fingerbreadth Respiratory: Lungs clear, Normal breath sounds, No respiratory distress, No accessory muscle use Plan Anesthesia Type: General Consent for Procedure(s) Verified and Reviewed: Yes Code Status: Attempt Resuscitation ASA classification: 2-Mild systemic disease Is this case an emergency?: No
[2021-11-16] MEDS ORDERED: PROPOFOL 200 MG/20 ML VIAL IVP ONE (09:52)
[2021-11-16] MEDS ORDERED: LIDOCAINE-MPF 2% 5 ML VIAL ONE (09:52)
[2021-11-16] MEDS ORDERED: MIDAZOLAM 2 MG/2 ML VIAL ONE (09:53)
[2021-11-16] MEDS ORDERED: fentaNYL 100 MCG/2 ML VIAL ONE (09:54)
[2021-11-16] MEDS ORDERED: LACTATED RINGERS 1,000 ML IV SCH (10:00)
[2021-11-16] MEDS ORDERED: BUPIVACAINE 0.5% PF 30 ML VIAL SUBQ ONE (10:40)
[2021-11-16] MEDS ORDERED: DEXAMETHASONE 4 MG/ML VIAL ONE (10:49)
[2021-11-16] MEDS ORDERED: ONDANSETRON 4 MG/2 ML VIAL ONE (10:49)
[2021-11-16] MEDS ORDERED: ePHEDrine 50 MG/ML VIAL IVP ONE (10:49)
--- NOTE | 2021-11-16 12:10 | OPERATIVE REPORT ---
Operative Report - General Procedure Date: 11/16/21 Planned Procedure: LEFT inguinal exploration, LEFT ilioinguinal neurectomy Pre-Op Diagnosis: LEFT inguinodynia Procedure Performed: LEFT inguinal exploration, explantation mesh, LEFT ilioinguinal neurectomy, LEFT direct inguinal herniorrhaphy without mesh Post Op Diagnosis: Involvement of LEFT ilioinguinal nerve in mesh with resultant LEFT inguinod - Procedure Note Primary Surgeon: Spike Noe MD Anesthesia Provider: Virginia Obrien CRNA Anesthesia Technique: General LMA, Local (30 mL 1/2% marcaine) IV Fluids (mL): 800 Estimated Blood Loss (mL): 10 Drain/Tube Type: Other (None) Indications: As above. Findings: As above. Complications: None. - Other Other Information/Narrative: After verbal and written informed consent was obtained detailing the operation, the alternatives the operation including no operation, risks of infection, bleeding requiring transfusion with its risks, nerve injury, and and after I met with the patient confirming the surgery and the site of surgery, the patient was brought to the operative suite and placed supine on the operating table. Great care was taken to avoid pressure points to prevent pressure necrosis or nerve injury. Monitoring devices were applied along with TEDs and pneumatic compression stockings (to prevent DVT). The patient received preoperative antibiotics for surgical prophylaxis. Virginia Obrien CRNA sedated and anesthetized the patient for the entire procedure. The patient was prepped and draped in the usual sterile manner. With the patient draped my initials were clearly visible. A "time in" then confirmed that the patient was identified with 3 identifiers (name, date, and medical record number), the history and physical was updated and in the chart, the signed consent confirming the procedure was in the chart, the patient was in the correct position, the aforementioned prophylactic measures were in place or given, we had the correct personnel and equipment to complete the procedure and that anesthesia and the surgical team were given an opportunity to express any concerns. With the agr eement of everyone in the room we proceeded with the operation. I traced the previous incision using a 15 blade scalpel. Dissection down to the subcutaneous tissues was completed using a combination of scalpel as well as Bovie electrocautery. Minimal bleeding was encountered and what was encountered was controlled using Bovie electrocautery. This dissection was taken down to the external oblique. No crossing veins were encountered as these were controlled during the previous operation. The external oblique was incised and this was taken down to the external ring using Metzenbaum scissors. The cord contents were dissected free from the surrounding tissue with some difficulty due to postoperative scarring. At the inferior aspect at the mid portion of the shelving edge of Poupart's ligament the mesh had collected causing a small meshoma and the ilioinguinal nerve was noted to be involved in this scarred area. Although there was no recurrence noted of the direct hernia it was clear that the mesh had gathered more medially. I elected to resect the mesh. This was done using a combination of blunt and sharp dissection. The mesh was excised in its entirety. A Andie drain was placed around the cord contents to aid in visualization for the repair. Once the mesh was removed, the ilioinguinal nerve was transected using Metzenbaum scissors as far laterally as I could reach and the end was reflected back laterally and injected liberally with half percent Marcaine. The piece of nerve was sent for pathologic confirmation. Now that I had removed the mesh, the patient had a direct hernia and I opted to fix this without mesh using interrupted 0 Prolene sutures to approximate the conjoined tendon with the shelving edge of Poupart's ligament. This was done without any undue tension and I proceeded laterally until of the internal ring would admit only the tip of my little finger. Meticulous hemostasis was noted. This area was then reinjected using half percent Marcaine. The external oblique was then closed using a running 3-0 Vicryl thus recreating the external ring. Ernesto's fascia was reapproximated. The subcutaneous tissues were then injected with the remaining half percent Marcaine. The skin incision was approximated with 4-0 Monocryl in a subcuticular fashion. The skin was cleaned of its prep and Dermabond was applied. At this point a timeout was performed that confirmed that all counts were correct x2, the procedure that was performed, the blood loss, the IV fluids administered, the patient's condition, and any concerns of the operating team had. Having tolerated the procedure well, the patient was taken recovery room in good and stable condition. The plan is for outpatient discharge when the patient is adequately recovered. This document was created in part using voice recognition technology. Because of the inherent limitations of the system, occasional same sounding word substitutions and grammatical errors do occur and persist despite proofreading. Please read this document for content.
[2021-11-16 13:06] VITALS: BP 146/65
--- NOTE | 2021-11-16 13:15 | ANESTHESIA POST OP EVALUATION ---
Anesthesia Post Eval - Post Anesthesia Eval Vitals: Last Vital Signs Temp 36.4 C L 11/16/21 13:04 Pulse 70 11/16/21 13:04 Resp 14 11/16/21 13:04 BP 146/65 H 11/16/21 13:04 Pulse Ox 97 11/16/21 13:04 CV Function Including HR & BP: Stable Pain Control: Satisfactory Nausea & Vomiting: Negative Mental Status: Baseline Respiratory Status: Airway Patent Hydration Status: Satisfactory Anesthesia Complications: None
== END 2021-11-16 08:44 | disposition home or self-care (01) ==
LOC: SDS 08:43
PROVIDERS: ATTEND Surgery
PROC: 01B Peripheral Nervous System, Excision (ICD-10-PCS; principal; 2021-11-16 10:00)
DX: G97.82 Other postprocedural complications and disorders of nervous system (principal); Y83.8 Other surgical procedures as the cause of abnormal reaction of the patient, or of later complication, without mention of misadventure at the time of the procedure; K40.91 Unilateral inguinal hernia, without obstruction or gangrene, recurrent; I12.9 Hypertensive chronic kidney disease with stage 1 through stage 4 chronic kidney disease, or unspecified chronic kidney disease; N18.9 Chronic kidney disease, unspecified; T39.395S Adverse effect of other nonsteroidal anti-inflammatory drugs [NSAID], sequela; E66.9 Obesity, unspecified; Z68.34 Body mass index [BMI] 34.0-34.9, adult; Z87.891 Personal history of nicotine dependence
CPT/HCPCS: 22999; 49520; 64999; J0690; J7120

== ENCOUNTER 2022-02-07 09:08 | Day surgery (SDC) | payer MEDICARE, OTHER ==
[~2022-02-07 09:08] MED LIST changes: +BRIMONIDINE 0.2% OPHTH DROPS 5 ML ONE; +BSS/LIDOCAINE/EPINEPHRINE 1 ML VIAL ONE; +CYCLOPENTOLATE 1% OPHTH DROPS 2 ML ONE; +EPINEPHrine 1 MG/ML AMP ONE; +KETOROLAC 0.45% OPHTH DROPS ONE; +PHENYLEPHRINE 2.5% OPHTH 2 ML DROPS ONE; +PROPARACAINE 0.5% OPHTH DROPS 15 ML ONE; +TIMOLOL 0.5% OPHTH DROPS ONE; +TRIAMCIN/MOXIFLOX OPHTHALMIC 0.6 ML VIAL IO ONE; -ceFAZolin 2 GM/50 ML 2 GM/50 ML BAG IV ONE
[2022-02-07] MEDS ORDERED: LACTATED RINGERS 1,000 ML IV ONE (09:46)
[2022-02-07] MEDS ORDERED: MIDAZOLAM 2 MG/2 ML VIAL ONE (10:02)
--- NOTE | 2022-02-07 10:16 | ANESTHESIA ---
Pre-Anesthesia VS, & Labs - Diagnosis L cataract - Procedure L PhacoIOL Vital Signs: Temp Pulse Resp BP Pulse Ox 37.1 C 70 13 137/71 H 97 02/07/22 09:47 02/07/22 09:47 02/07/22 09:47 02/07/22 09:47 02/07/22 09:47 Height: 5 ft 9 in Weight (kg): 103 kg Body Mass Index: 33.5 BMI Classification: Obese - NPO >8 hours Home Medications and Allergies Losartan [Cozaar] 100 mg PO QPM 11/03/14 Acetaminophen [Tylenol] 1,300 mg PO Q8HR PRN 09/26/15 Docusate Sodium 300 mg PO BID 09/26/15 Loratadine 10 mg PO DAILY 09/26/15 Magnesium Oxide/Magnesium [Magnesium 300 mg Capsule] 500 - 1,000 mg PO BID 09/26/15 Cholecalciferol (Vitamin D3) [Vitamin D3] 2,000 mg PO BID 03/10/18 Hydroxychloroquine [Plaquenil] 400 tab PO DAILY 03/10/18 Calcium Carbonate [Tums (Calcium Carbonate 500mg)] 500 mg PO Q4-6H 05/21/21 Celecoxib [Celebrex] 200 mg PO BID PRN 05/21/21 Chlorthalidone 12.5 mg PO DAILY 05/21/21 Fexofenadine HCl 180 mg PO DAILY 05/21/21 Lactobacillus Combination No.4 [Probiotic] 1 each PO DAILY 05/21/21 Omeprazole [PriLOSEC] 20 mg PO DAILY 05/21/21 Allergies/Adverse Reactions: Allergies Allergy/AdvReac Type Severity Reaction Status Date / Time prochlorperazine maleate * Allergy Severe dystonic Verified 02/06/22 13:11 [From Compazine] reaction lisinopril AdvReac Intermediate cough Verified 02/06/22 13:11 Anes History & Medical History - Anesthetic History Anesthesia Complications: reports: No previous complications Family history of Anesthesia Complications: Denies Family history of Malignant Hyperthermia: Denies - Medical History Cardiovascular: reports: Hypertension Pulmonary: reports: None Gastrointestinal: reports: None Urinary: reports: Benign prostate hypertrophy, Renal insuffiency, Other Musculoskeletal: reports: Other Endocrine/Autoimmune: reports: HyPOthyroidism Skin: reports: Other Smoking Status: Never smoker - Surgical History General: reports: Colonoscopy, EGD, Other Eyes Ears Nose Throat (EENT): reports: Tonsil/Adenoidectomy, Other Orthopedic: reports: Hip replacement, Knee replacement, Carpal Tunnel surgery, Other Dermatologic: reports: Skin cancer surgery Exam General: Alert, Oriented x3, Cooperative Dental: WNL Mouth Openin Fingerbreadth Neck Mobility: Normal Mallampati classification: II Thyromental Distance: 4-6 cm Respiratory: Lungs clear Cardiovascular: Regular rate Plan Anesthesia Type: MAC Consent for Procedure(s) Verified and Reviewed: Yes Code Status: Attempt Resuscitation ASA classification: 2-Mild systemic disease Is this case an emergency?: No
[2022-02-07] MEDS ORDERED: BRIMONIDINE 0.2% OPHTH DROPS 5 ML OPTH ONE (11:09)
[2022-02-07] MEDS ORDERED: EPINEPHrine 1 MG/ML AMP IR ONE (11:09)
[2022-02-07] MEDS ORDERED: TIMOLOL 0.5% OPHTH DROPS OPTH ONE (11:09)
[2022-02-07] MEDS ORDERED: BSS/LIDOCAINE/EPINEPHRINE 1 ML SYRINGE IO ONE (11:10)
[2022-02-07] MEDS ORDERED: TRIAMCIN/MOXIFLOX OPHTHALMIC 0.6 ML VIAL IO ONE (11:10)
[2022-02-07] MEDS ORDERED: VANCOMYCIN OPHTHALMI 8MG/0.8ML 8 MG/0.8 ML SYRINGE IO ONE (11:11)
[2022-02-07] MEDS ORDERED: PROPARACAINE 0.5% OPHTH DROPS 15 ML EACHEYE ONE (11:11)
[2022-02-07] MEDS ORDERED: LACTATED RINGERS 800 ML IV ONE (11:25)
--- NOTE | 2022-02-07 11:26 | OPERATIVE REPORT ---
Operative Report - Other Other Information/Narrative: Date of Surgery: 02/07/22 Preop Dx: Visually significant cataract left eye. This was the first cataract surgery. Postop Dx: Same Procedure: Phacoemulsification with posterior chamber intraocular lens implant left eye Surgeon: Dr. 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 Best corrected visual acuity was 20/20 with glare to 20/70 vision in the left eye. Indications for surgery were: - Overall decrease in vision - Difficulty seeing words on a computer screen - Difficulty reading - Difficulty seeing words, closed captions, or game scores on TV - Difficulty seeing street signs - Difficulty driving in low light or at night - Difficulty driving at night because of headlights from other vehicles - Difficulty with glare or bright lights in any situation The patient was consented at length concerning the risks and benefits of cataract surgery after which the patient expressed a desire to proceed with surgery. Operative Procedure: The patient was taken into OR#3 and placed under monitored anesthesia care. A surgical time-out was conducted confirming correct patient, correct procedure, and correct surgical site. The patient was given topical anesthesia and then prepped and draped in the usual sterile fashion. The eye was entered at the 6 and 3 oclock positions. Intracameral Shugarcaine was injected into the anterior chamber followed by a dispersive viscoelastic. A continuous-tear curvilinear capsulorhexis was performed. The nucleus was hydrodissected and phacoemulsified. The cortex was evacuated using automated infusion and aspiration. A cohesive viscoelastic was injected into the capsular bag and a 23.0 diopter intraocular lens was inserted into the bag. Infusion and aspiration were used to evacuate the viscoelastic materials from the eye. The wounds were hydrated and the eye inflated to physiologic pressure using balanced salt solution. Approximately 0.25ml of a mixture of triamcinolone and moxifloxacin was injected trans-sclerally into the vitreous in the inferotemporal quadrant using a 30 gauge cannula. An additional 0.55ml of a mixture of triamcinolone, moxifloxacin, and vancomycin was injected subconjunctivally in the superior quadrant for infection and inflammation prophylaxis. Wound integrity was checked with Weck-Josseline sponges. The patient was taken from the operating room in good condition and given post-op instructions.
[2022-02-07 11:27] VITALS: BP 137/78
--- NOTE | 2022-02-07 15:07 | ANESTHESIA POST OP EVALUATION ---
Anesthesia Post Eval - Post Anesthesia Eval Vitals: Last Vital Signs Temp 36.6 C 02/07/22 11:26 Pulse 62 02/07/22 11:26 Resp 16 02/07/22 11:26 BP 137/78 H 02/07/22 11:26 Pulse Ox 97 02/07/22 11:26 CV Function Including HR & BP: Stable Pain Control: Satisfactory Nausea & Vomiting: Negative Mental Status: Baseline Respiratory Status: Airway Patent Hydration Status: Satisfactory Anesthesia Complications: None
== END 2022-02-07 09:09 | disposition home or self-care (01) ==
LOC: SDS 09:08
PROVIDERS: ATTEND Ophthalmology
DX: H25.812 Combined forms of age-related cataract, left eye (principal); N40.0 Benign prostatic hyperplasia without lower urinary tract symptoms; E66.9 Obesity, unspecified; Z68.33 Body mass index [BMI] 33.0-33.9, adult
CPT/HCPCS: 66984; A9270; J3490; J7120